=== PATIENT | female | born 1990 | race African-American/Black ===

== ENCOUNTER → 2016-10-19 09:50 | Emergency (ER) | payer OTHER | END | disposition home or self-care (01) | LOC: ER 09:50 | DX: Z76.0 Encounter for issue of repeat prescription (principal) | CPT/HCPCS: 99282 ==

== ENCOUNTER 2016-12-19 13:00 | Emergency (ER) | payer OTHER | END 2016-12-19 13:28 | disposition home or self-care (01) | LOC: ER 13:00 | DX: J02.9 Acute pharyngitis, unspecified (principal); F17.200 Nicotine dependence, unspecified, uncomplicated | CPT/HCPCS: 84703; 86308; 87070; 87880; 96372; 99283 ==